=== PATIENT | female | born 1975 | race Caucasian/White ===

== ENCOUNTER 2018-04-25 08:01 | Emergency (ER) ==
[2018-04-25 08:09] VITALS: BP 128/77; TEMP 97.9; BMI 22.8
[2018-04-25 08:36] LABS: URINE PREGNANCY TEST NEGATIVE (NEGATIVE)
--- NOTE | 2018-04-25 09:48 | US ---
EXAM: Bilateral lower extremity venous Doppler duplex HISTORY: Concern for DVT with lower extremity edema and pain. COMPARISON: CT abdomen pelvis same day TECHNIQUE: Sonographic and Doppler evaluation of the bilateral lower extremity vessels from the comm on femoral through the anterior tibial veins were obtained. Color Doppler wave spectral analysis was performed. Augmentation and compression techniques were also performed. FINDINGS: There is spontaneous Doppler flow seen in the bilateral lower extremity veins from the com mon femoral through the anterior tibial veins. There is normal compression and augmentation througho ut the lower extremity veins. Sonographic appearance of the soft tissues are unremarkable. IMPRESSION: No lower extremity thrombus
--- NOTE | 2018-04-25 09:52 | CT ---
EXAM: CT abdomen pelvis without contrast HISTORY: Flank pain COMPARISON: None TECHNIQUE: CT abdomen pelvis performed without intravenous contrast. Coronal and sagittal reformatt ed images obtained FINDINGS: Small right pleural effusion. Right middle lobe atelectasis and/or infiltrate, incomplete ly imaged. Mild bibasilar atelectasis. Centrilobular nodularity at the left lung base. No free air . No acute abnormalities of the bones. Heart normal in size. Evaluation organ parenchyma limited w ithout contrast. Long right lobe of liver. Gallbladder unremarkable. Pancreas unremarkable. Splee n unremarkable. Adrenals unremarkable. No hydronephrosis or nephrolithiasis. No calculi visualized in normal course of the ureters. Bladder unremarkable. Uterus unremarkable. Aorta normal in calib er. No lymphadenopathy or ascites. Small right pleural effusion. Postsurgical changes of Thomas-en-Y gastric bypass. Tiny duodenal diverticula. Mild fluid and gas distension of the jejunal jejunal anas tomosis. No evidence for bowel obstruction as there are no additional dilated loops of small bowel a nd the distal small bowel is not decompressed. Appendix appears normal. Colon unremarkable IMPRESSION: 1. No hydronephrosis or nephrolithiasis. 2. Postsurgical changes of gastric bypass. Mild nonspecific fluid and gas distension of the jejunal jejunal anastomosis. No evidence for bowel obstruction. 3. Long right lobe of liver. This may represent right Nikolay variant versus enlarged hepatic lobe. 4. Small right pleural effusion. Right basilar atelectasis and/or pneumonia, incompletely imaged. 5. Bibasilar centrilobular nodularity, likely small airways infection/inflammation.
--- NOTE | 2018-04-25 09:59 | ED.PDOC ---
General ED Provider: Dr. CLAY ROMERO Chief Complaint: Urinary Problem Stated Complaint: urinary symptoms, right flank pain, leg edema Time Seen by Physician: 08:00 Mode of Arrival: Walk-In Information Source: Patient Exam Limitations: No limitations Nursing and Triage Documentation Reviewed and Agree: Yes Does patient meet sepsis criteria?: Yes If yes, has appropriate treatment been initiated?: No System Inflammatory Response Syndrome: Not Applicable Sepsis Protocol: For patient's 13 years and over: Temp is 96.8 and below OR 101 and greater Pulse >90 BPM Resp >20/minute Acutely Altered Mental Status Are patient's symptoms suggestive of a new infection, such as: -Pneumonia -Skin, Soft Tissue -Endocarditis -UTI -Bone, Joint Infection -Implantable Device -Acute Abdominal Infection -Wound Infection -Meningitis -Blood Stream Catheter Infection -Unknown Musculoskeletal Complaint Exam - Back Pain Complaint/Exam Mechanism of Injury: Reports: Trauma Onset/Duration: 1 day Symptoms Are: Still present Timing: Constant Episodes Lasting: Hours Initial Severity: Moderate Current Severity: Moderate Location: Reports: Discrete Character: Reports: Aching Aggravating: Reports: Movements, Lifting, Bending Alleviating: Reports: Rest, Position Associated Signs and Symptoms: Reports: Swelling (both legs). Denies: Redness, Bruising, Fever, Weakness, Numbness, Tingling, Abdominal pain, Flank pain, Bladder incontinence, Bowel incontinence, Weight loss, Pain with weight bearing Related History: Reports: Similar episode TAD Risk Factors: Reports: None AAA Risk Factors: Reports: None Cauda Equina Risk Factors: Reports: None Epidural Abcess Risk Factors: Reports: None Related Surgical History: Reports: None Focal Tenderness: No Paraspinal Muscle Tenderness: No Paraspinal Muscle Spasm: No Scoliosis: No Lordosis: No Kyphosis: No SLR Test: Right Negative, Left Negative Hip Motion Testing Pain: Right Negative, Left Negative Focal Weakness: Present: None Focal Sensory Loss: Present: None Gait: Present: Normal Differential Diagnoses: Strain, Sprain Review of Systems - Review Of Systems Constitutional: Reports: No symptoms Eyes: Reports: No symptoms Ears, Nose, Mouth, Throat: Reports: No symptoms Respiratory: Reports: No symptoms Cardiac: Reports: No symptoms GI: Reports: No symptoms : Reports: No symptoms Musculoskeletal: Reports: Back pain Skin: Reports: No symptoms Neurological: Reports: No symptoms Endocrine: Reports: No symptoms Hematologic/Lymphatic: Reports: No symptoms All Other Systems: Reviewed and Negative Past Medical History - Past Medical History Previously Healthy: Yes Endocrine: Reports: None Cardiovascular: Reports: None Respiratory: Reports: None Hematological: Reports: None Gastrointestinal: Reports: None Genitourinary: Reports: None Neuro/Psych: Reports: None Musculoskeletal: Reports: None Cancer: Reports: None Last Menstrual Period: control - Surgical History General Surgical History: Reports: None - Family History Family History: Reports: None - Social History Smoking Status: Current every day smoker, Heavy tobacco smoker Hx Substance Use: No Alcohol Screening: None Physical Exam - Physical Exam Appearance: Well-appearing, No pain distress, Well-nourished Eyes: ROBBI, EOMI, Conjunctiva clear ENT: Ears normal, Nose normal, Oropharynx normal Respiratory: Airway patent, Breath sounds clear, Breath sounds equal, Respirations nonlabored Cardiovascular: RRR, Pulses normal, No rub, No murmur GI/: Soft, Nontender, No masses, Bowel sounds normal, No Organomegaly Musculoskeletal: Normal strength, ROM intact, No edema, No calf tenderness Skin: Warm, Dry, Normal color Neurological: Sensation intact, Motor intact, Reflexes intact, Cranial nerves intact, Alert, Oriented Psychiatric: Affect appropriate, Mood appropriate Interpretation - Radiology Interpretation Radiology Interpretation By: Radiologist Radiology Results: No acute changes Critical Care Note - Critical Care Note Total Time (mins): 0 Course - Course Hematology/Chemistry: 04/25/18 08:35 04/25/18 08:35 Orders, Labs, Meds: Lab Review 04/25/18 04/25/18 04/25/18 08:24 08:24 08:35 WBC 12.54 H RBC 3.44 L Hgb 10.6 L Hct 33.6 L MCV 97.7 MCH 30.8 MCHC 31.5 L RDW Coeff of Radha 14.3 Plt Count 488 H Immature Gran % (Auto) 0.8 Neut % (Auto) 74.1 Lymph % (Auto) 17.5 [place] % (Auto) 6.1 Eos % (Auto) 1.0 Baso % (Auto) 0.5 Immature Gran # (Auto) 0.1 Neut # (Auto) 9.3 H Lymph # (Auto) 2.2 [place] # (Auto) 0.8 Eos # (Auto) 0.1 Baso # (Auto) 0.1 Sodium Potassium Chloride Carbon Dioxide Anion Gap BUN Creatinine Estimated GFR (MDRD) BUN/Creatinine Ratio Glucose Calcium Total Bilirubin AST ALT Alkaline Phosphatase Total Protein Albumin Globulin Albumin/Globulin Ratio Urine Color Yellow Urine Clarity Clear Urine pH 7.0 Ur Specific [place] 1.025 Urine Protein Negative Urine Glucose (UA) Negative Urine Ketones Negative Urine Blood Negative Urine Nitrite Negative Urine Bilirubin Negative Urine Urobilinogen 2.0 Ur Leukocyte Esterase Negative Urine Test Negative 04/25/18 08:35 WBC RBC Hgb Hct MCV MCH MCHC RDW Coeff of Radha Plt Count Immature Gran % (Auto) Neut % (Auto) Lymph % (Auto) [place] % (Auto) Eos % (Auto) Baso % (Auto) Immature Gran # (Auto) Neut # (Auto) Lymph # (Auto) [place] # (Auto) Eos # (Auto) Baso # (Auto) Sodium 139.1 Potassium 3.98 Chloride 105.0 Carbon Dioxide 31.0 H Anion Gap 7.08 BUN 21.3 H Creatinine 0.78 Estimated GFR (MDRD) 81.00 BUN/Creatinine Ratio 27.30 Glucose 77.2 Calcium 8.77 Total Bilirubin 0.22 AST 42.3 H ALT 27.8 Alkaline Phosphatase 84.1 Total Protein 7.08 Albumin 3.48 L Globulin 3.60 Albumin/Globulin Ratio 0.96 Urine Color Urine Clarity Urine pH Ur Specific [place] Urine Protein Urine Glucose (UA) Urine Ketones Urine Blood Urine Nitrite Urine Bilirubin Urine Urobilinogen Ur Leukocyte Esterase Urine Test Orders Category Date Time Status CBC W/ AUTO DIFF Stat LAB 04/25/18 08:35 Completed COMPREHENSIVE METABOLIC PANEL Stat LAB 04/25/18 08:35 Completed URINALYSIS C & S IF INDICATED Stat LAB 04/25/18 08:24 Completed URINE Stat LAB 04/25/18 08:[address] ABDOMEN/PELVIS WO CONTRAST Stat RADS 04/25/18 08:25 Completed U/S VENOUS SCAN TAVIA LEGS Stat RADS 04/25/18 08:26 Completed Vital Signs: Temp Pulse Resp BP Pulse Ox 04/25/18 08:01 97.9 F 81 20 128/77 97 Departure - Departure Time of Disposition: 10:04 Disposition: HOME SELF-CARE Discharge Problem: Urinary symptoms Back pain Qualifiers: Back pain location: low back pain Chronicity: unspecified Back pain laterality : right Sciatica presence: without sciatica Qualified Code(s): M54.5 - Low back pain Instructions: Chronic Back Pain (ED) Condition: Good Pt referred to PMD for follow-up: Yes IPMP verified?: No Additional Instructions: Please call your Family Physician as soon as possible to schedule a follow-up appointment. Allergies/Adverse Reactions: Allergies cephalexin [From Keflex] Adverse Reaction (Verified 04/25/18 08:11) erythromycin base Adverse Reaction (Verified 04/25/18 08:11) Penicillins Adverse Reaction (Verified 04/25/18 08:11) Home Medications: Ambulatory Orders Pantoprazole Sodium [Protonix] 40 mg PO DAILY 04/25/18 Sertraline HCl [Zoloft] 100 mg PO DAILY 04/25/18 l-Norgest/E.estradiol-E.estrad [Seasonique 0.15-0.03-0.01 Tab] 1 each PO DIRECTED 04/25/18
== END 2018-04-25 10:15 | disposition home or self-care (01) ==
LOC: ED 08:01
DX: M54.5 Low back pain (principal); R60.0 Localized edema; R39.9 Unspecified symptoms and signs involving the genitourinary system; F17.210 Nicotine dependence, cigarettes, uncomplicated
CPT/HCPCS: 36415; 80053; 81001; 81025; 85025; 99283